=== PATIENT | female | born 2000 | race African-American/Black ===

== ENCOUNTER 2019-04-20 18:40 | Emergency (ER) | payer SELFPAY ==
[~2019-04-20] VITALS: Ht 175.3 cm; Wt 81.6 kg
[2019-04-20 18:58] VITALS: BP 134/76
[2019-04-20] MEDS ORDERED: METHOCARBAMOL 500 MG TAB PO ONE (21:15)
[2019-04-20] MEDS ORDERED: IBUPROFEN 800 MG TAB PO ONE (21:15)
== END 2019-04-20 21:39 | disposition home or self-care (01) ==
LOC: ER 18:45
DX: M54.2 Cervicalgia (principal); R51 Headache; Z88.6 Allergy status to analgesic agent; V43.52XA Car driver injured in collision with other type car in traffic accident, initial encounter; Y93.89 Activity, other specified; Y99.8 Other external cause status; Y92.410 Unspecified street and highway as the place of occurrence of the external cause
CPT/HCPCS: 72040